=== PATIENT | female | born 2000 | race Caucasian/White ===

== ENCOUNTER 2022-05-22 10:14 | Emergency (ER) | payer OTHER ==
[~2022-05-22 10:14] MED LIST: COLACE 100MG C100 MG PO; FERROUS SULFAT325 M2 PO; IBUPROFEN600 MG PO; LABETALOL HCL100 MG PO; LORTAB 5-325 M1 EACH PO; PEPCID20 MG PO
[2022-05-22] MEDS ORDERED: CEPHALEXIN500 M1 PO (11:17)
[2022-05-22] MEDS ORDERED: BACTRIM DS TAB1 EACH PO (11:17)
== END 2022-05-22 11:10 | disposition home or self-care (01) ==
LOC: ER1 10:14
DX: L03.113 Cellulitis of right upper limb (principal)
CPT/HCPCS: 99283